=== PATIENT | female | born 1980 | race Two or more races ===

== ENCOUNTER 2019-01-14 19:47 | Emergency (ER) | payer MEDICAID ==
[~2019-01-14] VITALS: Ht 152.4 cm; Wt 103.0 kg
[2019-01-14 20:33] VITALS: BP 139/79
== END 2019-01-15 00:30 | disposition left against medical advice (07) ==
LOC: ER 19:53
DX: R10.32 Left lower quadrant pain (principal); Z53.21 Procedure and treatment not carried out due to patient leaving prior to being seen by health care provider